=== PATIENT | female | born 1945 | race Caucasian/White ===

== ENCOUNTER 2023-11-17 20:32 | Inpatient (IN) | payer MEDICARE, SELFPAY ==
[2023-11-17] VITALS (9 sets, daily range): BP systolic 100–161; BP diastolic 55–96; BMI 25.6; BMI 28.7
[2023-11-17 14:50] LABS: % Basophils 0.4 % (0-2); % Eosinophils 1.5 % (0-6); % Immature Granulocytes 0.4 % (0-0.5); % Lymphocytes 12.1 % (20.5-51.1); % Monocytes 2.6 % (1.7-9.3); Absolute Basophils 0.1 10^3/uL (0-0.2); Absolute Eosinophils 0.2 10^3/uL (0-0.7); Absolute Immature Granulocytes 0.1 10^3/uL (0-0.05); Absolute Lymphocytes 1.6 10^3/uL (1.2-3.4); Absolute Monocytes 0.3 10^3/uL (0.1-0.6); Absolute Neutrophils 10.8 10^3/uL (1.4-6.5); Hematocrit 37.5 % (37.0-47.0); Hemoglobin 12.9 g/dL (12.0-16.0); Mean Corp Hgb Conc. 34.4 g/dL (33.0-37.0); Mean Corpuscular Volume 87.2 fL (81.0-99.0); Mean Platelet Volume 9.2 fL (7.4-10.4); Nucleated Red Blood Cells % 0 %; Platelet Count 220 10^3/uL (130-400); Red Cell Dist. Width 13.3 % (11.5-14.5)
[2023-11-17 15:06] LABS: COVID-19 Antigen Negative (Negative)
--- NOTE | 2023-11-17 15:08 | EDRN ---
still awaiting for provider to see the pt
[2023-11-17 15:09] LABS: ALT (SGPT) 13 U/L (0-35); AST (SGOT) 19 U/L (14-36); Alkaline Phosphatase 96 U/L (38-126); Blood Urea Nitrogen 16 mg/dl (7-17); Calcium 8.7 mg/dl (8.4-10.2); Carbon Dioxide 20 mmol/L (22-30); Chloride 107 mmol/L (98-107); Estimated Creatinine Clearance 55 ml/min; Glucose 179 mg/dl (70-99); Potassium 3.6 mmol/L (3.5-5.1); Sodium 138 mmol/L (135-145); Total Bilirubin 1.1 mg/dl (0.2-1.3); Total Protein 6.7 g/dl (6.3-8.2); eGFR > 60.00
--- NOTE | 2023-11-17 15:52 | EDRN ---
provider Antonia RAY currently at the pts bedside, per provider 02 4L NC was taken off and sp02 remains at 94%, will continue to monitor the pt closely
--- NOTE | 2023-11-17 15:53 | ED.GENMED ---
History of Present Illness
<Olga Dacosta PA-C - Last Filed: 11/18/23 00:09>
General
Chief Complaint: Abdominal Pain
Source: patient
Exam Limitations: none and clinical condition
Time Seen by Provider: 11/17/23 15:38
Nursing documentation reviewed up to this point in time: agreed with
History of Present Illness
History of Present Illness:
Patient is an 78-year-old female with history diabetes, hyperlipidemia presenting to the emergency department via EMS for evaluation of abdominal pain and associated nausea. Patient states that yesterday evening she became nauseous and describes
some lower abdominal discomfort. She did have 1 episode of vomiting this morning. Patient seems mildly confused and unable to ascertain exactly why she is in the emergency department today and who called 911.
Patient specifically denies any chest pain, shortness of breath, urinary symptoms, diarrhea, or constipation. Patient does however state that she has had UTIs in the past. She does report some chills over the past few days.
Past History
<Olga Dacosta PA-C - Last Filed: 11/18/23 00:09>
Past History
ED Past Medical History: Hypercholesterolemia, NIDDM, Hypothyroidism and Other (Vertigo)
ED Past Surgical History: Cholecystectomy, Gynecological, Orthopedic and Urological
Social History
Tobacco: Smoker
Alcohol: None
Drug: None
Living: with family
Review of Systems
<Olga Dacosta PA-C - Last Filed: 11/18/23 00:09>
Review of Systems
Allergies reviewed?: Yes
All Other Systems: ROS reviewed and negative except as documented in HPI and ROS
Phy Exam
<Olga Dacosta PA-C - Last Filed: 11/18/23 00:09>
Physical Exam
Physical Exam:
Vitals: Temp of 103.1F, otherwise vital signs are stable.
General: Patient is well appearing, no acute distress
Skin: Warm and dry, no rashes or lesions
Head: Normocephalic, atraumatic
Eyes: Sclera nonicteric. EOMs intact. No nystagmus.
Throat: Dry mucous membranes. Protecting airway
Neck: Normal ROM, no cervical spine tenderness, no meningismus
Cardiac: Regular rate and rhythm, no murmurs.
Pulm: Normal respiratory effort, no wheezes, rales, rhonchi heard on exam.
Abdomen: Abdomen soft. Mild abdominal tenderness in lower abdomen R>L without any rebound tenderness or guarding.
Extremities: No evidence of cyanosis or edema. Great distal pulses
Neuro: Appears confused. AAOx 2 to person and time, not place. CN II-XII intact. No focal neurologic deficits. Strength 5 out of 5 in upper and lower extremities.
Psychiatric: Normal affect.
Course
<Olga Dacosta PA-C - Last Filed: 11/18/23 00:09>
Orders/Labs/Results
Orders:
Orders
11/17/23 Breakfast
Clear Liquid
At Your Request: Full Participation
11/17/23 14:44
COVID-19 Antigen Urgent
Source: Nasal Swab
Complete Blood Count/With Diff Urgent
Comprehensive Metabolic Panel Urgent
Lactic Acid Urgent
Lipase Urgent
11/17/23 14:45
Urinalysis Reflex To Culture Urgent
Date Specimen was Collected: 11/17/23
Time Specimen was Collected: 14:43
Urine Microscopic Reflex Cult Urgent
Urine Culture Urgent
BARBARA Source: U
Specimen Description:
Date Specimen was Collected: 11/17/23
Time Specimen was Collected: 14:43
11/17/23 14:53
CXR2 [CR Chest - 2 Views ] Urgent
Comment:
Reason For Exam: cough with Sp02 of 88% on RA
11/17/23 15:55
0.9% Sodium Chloride 1000 ml [Nss] 1,000 ml IV BOLUS
Acetaminophen [Tylenol] 1,000 mg PO NOW STA
11/17/23 16:31
0.9% Sodium Chloride 1000 ml [Nss] 1,000 ml IV BOLUS
11/17/23 16:44
Blood Culture Urgent
BARBARA Source: Blood/Venous
Specimen Description:
11/17/23 17:23
Lactic Acid Urgent
11/17/23 18:53
Cefepime HCl [Maxipime] 2,000 mg IV NOW STA
11/17/23 19:34
Admit/Transfer Patient As Directed
Co-Sign Provider:
Level of Care: Inpatient admission
Assign to:: Telemetry
Physician / Group: Carlos
Diagnosis: Sepsis UTI
Reason for Telemetry: Arrhythmia
Date to Stop Telemetry: 11/20/23
Time to Stop Telemetry: 11:00
Reason for Hospitalization: IV abx
Expected length of stay greater than two midnights?: Yes
ELOS- Estimated Length of Stay in days: 3
I certify the patient meets the requirements for IP care: Yes
PRN Pain Medication Management As Directed
May give lesser potent ordered pain med per pt: Yes
preference::
Protocol:: Medication orders for pain may be administered in a
manner that supports deferring to patient preference
when the pt is:
- Requesting an ordered lesser potent pain medication.
Least to most potent pain medications are defined
as: acetaminophen < NSAID < tramadol < opioids
(morphine, oxycodone, hydromorphone).
- Requesting a lesser dose of the same medication IF
ORDERED.
- Requesting a less intrusive route of administration
if both routes are prescribed by the provider (PO <
IV).
11/17/23 19:35
CT Abd/pel Without Iv Or Oral Urgent
Comment:
Reason For Exam: Fever, Dysuria, Urinary Frequency
Code Status As Directed
Resuscitation Status: Full Code
11/17/23 21:17
0.9% Sodium Chloride 1000 ml [Nss] 1,000 ml IV 75 mls/hr
Acetaminophen [Tylenol] 650 mg PO Q4HPRN PRN
Dextrose 50%-Water [Dextrose 50% Syringe] 12.5 grams IV [id number] PRN
Glucagon [GlucaGen] 1 mg IM PRN PRN
11/17/23 21:17
Activity As Directed
Activity Level: Out of Bed-Early Mobility
With Assistance
Advance Diet as Tolerated As Directed
Goal Diet: 2200 janine/ 18 CHO Diabetic
Bedside Glucose Monitoring As Directed
Frequency: AC&HS
Additional Instructions:: Change to q6h if pt on TPN, tube feeding or not eating
I&O [Intake/ Output] As Directed
Frequency: q12h
Pneumatic Compression Sleeves As Directed
Type: Knee high
Vital Signs As Directed
Frequency: Per unit guidelines
Weight As Directed
Frequency: Daily
DX Deep Vein Thrombosis Video Routine
11/18/23 06:00
Basic Metabolic Panel IN AM
Complete Blood Count/No Diff IN AM
Glycohemoglobin (HgbA1c) IN AM
Levothyroxine [Synthroid] 150 mcg PO DAILY @ 0600
11/18/23 07:30
Insulin Aspart Corrective Low [Novolog Flexpen-Low Resistance] See Protocol SC AC
11/18/23 08:00
Atorvastatin [Lipitor] 10 mg PO DAILY
11/20/23 11:00
DC Protocol for Telemetry ONCE
Abnormal Lab Results
11/17/23 11/17/23
14:44 14:45
WBC 13.0 H 10^3/uL
(4.8-10.8)
Abs Immat Gran (auto) 0.1 H 10^3/uL
(0-0.05)
Absolute Neuts (auto) 10.8 H 10^3/uL
(1.4-6.5)
Neutrophils % 83.0 H %
(42.2-75.2)
Lymphocytes % 12.1 L %
(20.5-51.1)
Carbon Dioxide 20 L mmol/L
(22-30)
Glucose 179 H mg/dl
(70-99)
Lactic Acid 2.3 H mmol/L
(0.7-2.0)
Urine Ketones 3+ A
(Negative)
Ur Occult Blood Reflex 3+ A
(Negative)
Urine Nitrite (Reflex) Positive A
(Negative)
Urine RBC 21-25 A /HPF
(0-2)
Urine WBC (Reflex) 16-20 A /HPF
(0-5)
Urine Bacteria (Reflex) Many A
(Negative)
Urine Glucose 2+ A
(Negative)
11/17/23 14:44
11/17/23 14:44
Vital Signs
Temp: 103.1 F
Initial and Last Documented VS:
Initial Vital Signs
BP
121/56
11/17/23 14:38
Last Documented Vital Signs
Temp Pulse Resp BP Pulse Ox
97.1 F 100 20 161/96 98
11/17/23 23:21 11/17/23 23:21 11/17/23 23:21 11/17/23 23:21 11/17/23 23:21
<Randy Gomez, DO - Last Filed: 11/17/23 18:52>
Orders/Labs/Results
Orders:
Orders
11/17/23 Breakfast
Clear Liquid
At Your Request: Full Participation
11/17/23 14:44
COVID-19 Antigen Urgent
Source: Nasal Swab
Complete Blood Count/With Diff Urgent
Comprehensive Metabolic Panel Urgent
Lactic Acid Urgent
Lipase Urgent
11/17/23 14:45
Urinalysis Reflex To Culture Urgent
Date Specimen was Collected: 11/17/23
Time Specimen was Collected: 14:43
Urine Microscopic Reflex Cult Urgent
Urine Culture Urgent
BARBARA Source: U
Specimen Description:
Date Specimen was Collected: 11/17/23
Time Specimen was Collected: 14:43
11/17/23 14:53
CXR2 [CR Chest - 2 Views ] Urgent
Comment:
Reason For Exam: cough with Sp02 of 88% on RA
11/17/23 15:55
0.9% Sodium Chloride 1000 ml [Nss] 1,000 ml IV BOLUS
Acetaminophen [Tylenol] 1,000 mg PO NOW STA
11/17/23 16:31
0.9% Sodium Chloride 1000 ml [Nss] 1,000 ml IV BOLUS
11/17/23 16:44
Blood Culture Urgent
BARBARA Source: Blood/Venous
Specimen Description:
11/17/23 17:23
Lactic Acid Urgent
11/17/23 18:53
Cefepime HCl [Maxipime] 2,000 mg IV NOW STA
11/17/23 19:34
Admit/Transfer Patient As Directed
Co-Sign Provider:
Level of Care: Inpatient admission
Assign to:: Telemetry
Physician / Group: Carlos
Diagnosis: Sepsis UTI
Reason for Telemetry: Arrhythmia
Date to Stop Telemetry: 11/20/23
Time to Stop Telemetry: 11:00
Reason for Hospitalization: IV abx
Expected length of stay greater than two midnights?: Yes
ELOS- Estimated Length of Stay in days: 3
I certify the patient meets the requirements for IP care: Yes
PRN Pain Medication Management As Directed
May give lesser potent ordered pain med per pt: Yes
preference::
Protocol:: Medication orders for pain may be administered in a
manner that supports deferring to patient preference
when the pt is:
- Requesting an ordered lesser potent pain medication.
Least to most potent pain medications are defined
as: acetaminophen < NSAID < tramadol < opioids
(morphine, oxycodone, hydromorphone).
- Requesting a lesser dose of the same medication IF
ORDERED.
- Requesting a less intrusive route of administration
if both routes are prescribed by the provider (PO <
IV).
11/17/23 19:35
CT Abd/pel Without Iv Or Oral Urgent
Comment:
Reason For Exam: Fever, Dysuria, Urinary Frequency
Code Status As Directed
Resuscitation Status: Full Code
11/17/23 21:17
0.9% Sodium Chloride 1000 ml [Nss] 1,000 ml IV 75 mls/hr
Acetaminophen [Tylenol] 650 mg PO Q4HPRN PRN
Dextrose 50%-Water [Dextrose 50% Syringe] 12.5 grams IV [id number] PRN
Glucagon [GlucaGen] 1 mg IM PRN PRN
11/17/23 21:17
Activity As Directed
Activity Level: Out of Bed-Early Mobility
With Assistance
Advance Diet as Tolerated As Directed
Goal Diet: 2200 janine/ 18 CHO Diabetic
Bedside Glucose Monitoring As Directed
Frequency: AC&HS
Additional Instructions:: Change to q6h if pt on TPN, tube feeding or not eating
I&O [Intake/ Output] As Directed
Frequency: q12h
Pneumatic Compression Sleeves As Directed
Type: Knee high
Vital Signs As Directed
Frequency: Per unit guidelines
Weight As Directed
Frequency: Daily
DX Deep Vein Thrombosis Video Routine
11/18/23 06:00
Basic Metabolic Panel IN AM
Complete Blood Count/No Diff IN AM
Glycohemoglobin (HgbA1c) IN AM
Levothyroxine [Synthroid] 150 mcg PO DAILY @ 0600
11/18/23 07:30
Insulin Aspart Corrective Low [Novolog Flexpen-Low Resistance] See Protocol SC AC
11/18/23 08:00
Atorvastatin [Lipitor] 10 mg PO DAILY
11/20/23 11:00
DC Protocol for Telemetry ONCE
Abnormal Lab Results
11/17/23 11/17/23
14:44 14:45
WBC 13.0 H 10^3/uL
(4.8-10.8)
Abs Immat Gran (auto) 0.1 H 10^3/uL
(0-0.05)
Absolute Neuts (auto) 10.8 H 10^3/uL
(1.4-6.5)
Neutrophils % 83.0 H %
(42.2-75.2)
Lymphocytes % 12.1 L %
(20.5-51.1)
Carbon Dioxide 20 L mmol/L
(22-30)
Glucose 179 H mg/dl
(70-99)
Lactic Acid 2.3 H mmol/L
(0.7-2.0)
Urine Ketones 3+ A
(Negative)
Ur Occult Blood Reflex 3+ A
(Negative)
Urine Nitrite (Reflex) Positive A
(Negative)
Urine RBC 21-25 A /HPF
(0-2)
Urine WBC (Reflex) 16-20 A /HPF
(0-5)
Urine Bacteria (Reflex) Many A
(Negative)
Urine Glucose 2+ A
(Negative)
11/17/23 14:44
11/17/23 14:44
Vital Signs
Initial and Last Documented VS:
Initial Vital Signs
BP
121/56
11/17/23 14:38
Last Documented Vital Signs
Temp Pulse Resp BP Pulse Ox
97.1 F 100 20 161/96 98
11/17/23 23:21 11/17/23 23:21 11/17/23 23:21 11/17/23 23:21 11/17/23 23:21
<Olga Dacosta PA-C - Last Filed: 11/18/23 00:09>
MDM/Problems Addressed
Differential Diagnosis Includes:
Not limited to sepsis, septic shock, UTI, pyelonephritis, appendicitis, colitis,
MDM/Problems Addressed:
78-year-old female presenting with mild sepsis secondary to UTI. Presents via EMS history of nausea, lower abdominal pain, and 1 episode of vomiting. Appears confused on my initial evaluation. Patient is febrile to 103.1 F. Otherwise patient is
hemodynamically stable. Physical exam as above. Patient somewhat confused, alert and oriented x 2. No focal neurologic deficits noted. Heart regular rate and rhythm. Lungs clear bilaterally. Patient is oxygenating well on room air. Abdomen is
soft with mild diffuse lower abdominal tenderness. No focal tenderness noted. Patient is perfusing well. Labs were initiated which show a leukocytosis of 13 with left shift. No clinically significant abnormalities on chemistry panel. Lactic
acidosis of 2.3. Patient was repleted with 2 L normal saline. Urine was obtained which is positive for signs of infection. Chest x-ray obtained without any acute disease. Both urine culture and blood culture will be sent.
Patient has remained hemodynamically stable in emergency department. Blood pressure stable. Temperature has normalized following 1 g of Tylenol. She has received 2 L of normal saline. At this point�patient appears mildly septic likely due to
UTI. Will start patient on cefepime and admit to hospitalist for further management. Patient accepted to hospitalist service
Chronic conditions affecting care:
N/A
Acute Exacerbation and/or Progression of Chronic Illness:
N/A
<Olga Dacosta PA-C - Last Filed: 11/18/23 00:09>
*Radiology
Radiology exam reviewed: preliminary read by ED provider (No acute disease of chest)
*Pulse Oximetry
Patient hypoxic: no
*EKG
Interpreted by ED Provider?: NA
*Tip Fixer Interpretation
Rate: normal
Interpretation: normal
Heart Rate: 83
Rhythm: sinus
*Critical Care Note
Total Time (30-74mins, 75-104mins- exclusive of procedures): Not Applicable
<Olga Dacosta PA-C - Last Filed: 11/18/23 00:09>
Patient Management
Discussion with other providers: Hospitalist
Escalation/DeEscalation of care consider admission/obs:
Admit for IV antibiotics, further management
ED Attending Note
<Olga Dacosta PA-C - Last Filed: 11/18/23 00:09>
-
Portions of this chart may have been created with voice recognition software.� Occasional wrong word or��sound alike� substitutions may have occurred due to the inherent limitations of voice recognition software.
<Randy Gomez, - Last Filed: 11/17/23 18:52>
ED Attending Note
Patient seen and examined by attending physician: Yes
I performed a history and physical exam of patient and discussed management with resident, I reviewed resident's note and agree with documented findings and plan of care.: Yes
ED Attending Note:
I have reviewed and agree with patient treatment plan by Olga Funk. My exam revealed
Physical Exam
General: Appears uncomfortable, fever 103.1
Neck: supple. no meningeal signs. normal posterior pharynx
Heart: s1/s2 regular rate and rhythm, no murmur. equal radial
pulses.
HEENT: Pupils equal round reactive to light, EOMI
Lungs: no acute respiratory distress. clear bilaterally, intermittent cough
Abdomen: normal bowel sounds. not tender. no CVAT
Neuro: alert and oriented. no focal neurological deficits cranial nerves II through XII intact
Skin: no rash
Psychiatric: well kept. interactive and cooperative
Extremities: no edema. no calf tenderness. negative homans. good distal pulses
Patient with fever and UTI, mild sepsis. IV cefepime ordered. Admit to hospitalist.
Discharge Plan
Departure
Patient Disposition: Admit
Date of Disposition: 11/17/23
Time of Disposition: 18:52
Presentation/result/management discussed w/ accepting MD/DO: Hospitalist
Covid-19: Negative COVID-19
Discharge Problem:
Acute UTI, Sepsis
Interventions
Interventions:
*Risk Screen - Suicide Last Done: 11/17/23 21:39
*General Assessment Last Done: 11/17/23 14:49
*Neglect/Abuse Screening Last Done: 11/17/23 14:49
ED- Fall Risk Assessment Last Done: 11/17/23 14:49
*ED COVID-19 Vaccine History Last Done: 11/17/23 21:39
*Nursing Disposition Last Done: 11/17/23 21:18
GI-Vidjwb-Fweypukmbj Assessment Last Done: 11/17/23 14:49
Discharge Date and Time
Discharge Date/Time: 11/17/23 21:19
[2023-11-17 15:59] LABS: Lactic Acid 2.3 mmol/L (0.7-2.0)
[2023-11-17 16:15] LABS: Lipase 67 U/L (23-300)
[2023-11-17] MEDS: TYLENOL 1000 MG PO (16:17)
[2023-11-17] MEDS: NSS 1000 IV ×3 (16:17→21:38)
[2023-11-17 17:33] LABS: Urine Albumin Trace (Neg - Trace); Urine Bilirubin Negative (Negative); Urine Character Clear (Clear); Urine Color Yellow; Urine Glucose 2+ (Negative); Urine Ketone 3+ (Negative); Urine Leukocyte Negative (Negative); Urine Nitrite Positive (Negative); Urine Occult Blood 3+ (Negative); Urine Urobilinogen 1+ (Neg - 1+)
[2023-11-17 18:15] LABS: Lactic Acid 0.8 mmol/L (0.7-2.0)
[2023-11-17 19:11] LABS: Urine Bacteria Many (Negative); Urine Red Blood Cell 21-25 /HPF (0-2); Urine White Cell 16-20 /HPF (0-5)
[2023-11-17] MEDS: MAXIPIME 2000 MG IV (19:28)
--- NOTE | 2023-11-17 19:39 | W.PN.UPDATE ---
Update Note
Progress Note Update
This is an addendum to the H&P written by Karina Reyes on 11/17/2023.� Patient seen and examined independently with PA.
78-year-old female with past medical history of diabetes, hypercholesteremia, hypothyroidism, presenting with chills, right groin�pain, nausea, and dysuria.�
Patient febrile with temperature 102.5.
Chest x-ray unremarkable.� COVID-negative.� Urinalysis shows 16-20 WBC, positive nitrates.
Sepsis secondary to UTI/pyelonephritis.� Blood culture, urine culture pending.� IV fluids. Check CT abdomen pelvis. Cefepime.�
--- NOTE | 2023-11-17 19:40 | HPS.HSE ---
Family Physician
-
Family Physician: NOT KNOW UNKNOWN - PT DOES
Chief Complaint
-
Chills
History of Present Illness
Patient is a 78 yo F with PMH DM, hypothyroid, and HLD c/o chills x 1 day. Pt reports chills, subjective fever, nausea, and a small episode of vomiting since last night. She denies use of OTC medications. Pt also reports dysuria, urinary frequency,
urgency, and lower abdominal/suprapubic pressure beginning a week ago. Pt denies flank pain and recent illness/antibiotic use. She denies prior history of nephrolithiasis.
Medical History
Past Medical History
Past Medical History: Reports Other
Additional Past Medical History:
Diabetes Mellitus, Type II
Hyperlipidemia
Post-Surgical Hypothyroidism
Past Surgical History: Reports Other
Additional Past Surgical History:
Right Shoulder Hemiarthroplasty
Tonsillectomy
Thyroidectomy
Cholecystectomy
Vein Stripping
Back Surgery x 3
Social History
Tobacco: Smoker (About 6 cigarettes per day)
Family History
Family History: Not pertinent
Allergies / Home Medications
Allergies reflects when Allergies were last updated in [facility].
Home Medications with original date entered in [facility]
Allergy/Medication List:
Allergies
Allergy/AdvReac Type Severity Reaction Status Date / Time
adhesive tape Allergy Rash Verified 04/01/22 17:01
latex Allergy Rash Verified 04/01/22 17:01
Home Medications
atorvastatin 10 mg tablet 10 mg PO DAILY 11/19/12
levothyroxine 150 mcg tablet 150 mcg PO DAILY 07/06/18
acetaminophen 500 mg tablet (Tylenol Extra Strength) 1,000 mg PO Q6HPRN PRN mild pain 11/17/23
glimepiride 4 mg tablet 4 mg PO DAILY 11/17/23
repaglinide 0.5 mg tablet 0.5 mg PO TID 11/17/23
Review of Systems
-
A 12 point ROS was completed and negative except as noted: Yes
Constitutional: Reports Fever and Chills
Respiratory: Denies Cough or Trouble Breathing
Cardiac: Denies Chest Pain or Palpitations
: Reports Dysuria and Frequency; Denies Flank Pain or Bleeding
Physical Exam
Vital Signs
Vital Signs
Temp Pulse Resp BP Pulse Ox
98.9 F 75 21 130/82 91
11/17/23 18:27 11/17/23 18:30 11/17/23 18:30 11/17/23 18:27 11/17/23 18:30
Physical Exam
General: Comfortable and Conversant
HEENT: Anicteric and Moist mucous membranes
Respiratory: Clear and Non Labored Respirations
Cardiac: S1/S2 and Regular Rhythm
GI: Soft and Non Tender
Genito-urinary: No Costovertebral angle tend
Musculoskeletal: No Clubbing, No Cyanosis and No Edema
Skin: Warm and Dry
Neuro: Awake, Alert, Oriented and Nonfocal/grossly intact
Psych: Calm
Laboratory Results
-
11/17/23 14:44
11/17/23 14:44
Laboratory Results
Lactic Acid 0.8 mmol/L (0.7-2.0) 11/17/23 17:23
Total Bilirubin 1.1 mg/dl (0.2-1.3) 11/17/23 14:44
AST 19 U/L (14-36) 11/17/23 14:44
ALT 13 U/L (0-35) 11/17/23 14:44
Alkaline Phosphatase 96 U/L (38-126) 11/17/23 14:44
Lipase 67 U/L (23-300) 11/17/23 14:44
Data Reviewed
-
Lab Data: Labs Reviewed by me
Impression/Plan
-
Sepsis, secondary Urinary Tract Infection
-Continue Cefepime
-Await blood and urine culture
-Check Abd/Pelvis CT to evaluate for possible pyelonephritis or nephrolithiasis
Diabetes Mellitus, Type II
-Hold oral meds
-Monitor sugars and continue coverage insulin
Hyperlipidemia
-Continue atorvastatin
Post-Surgical Hypothyroidism
-Continue levothyroxine
DVT proph: Lovenox
Code Status: Full Code
[2023-11-17 21:39] LABS: Glucose - Point of Care 218 mg/dl (70-99)
[2023-11-18] MEDS: TYLENOL 650 MG PO ×3 (00:18→16:35)
[2023-11-18] MEDS: COMPAZINE 5 MG IV (00:19)
--- NOTE | 2023-11-18 02:14 | PTCARENOTE ---
Pt admitted to the unit from ED. Pt ambulated with nursing staff to bed. AAXO3. VS: Temp 98.5, Pulse 64, BP 100/58, Resp Rate 18, O2 98 on RA. IV fluids infusion started. See MAR. Pt denied N/V. Pt reports 'discomfort, like my bladder is full but it
isn't' across lower abdomen. Pt reports pain is acceptable level of 4/10. Pt oriented to room with call almazan in reach. Plan of care ongoing.
~23:44 Pt vomited 50 mL of green liquid. AAXO2. Pt reoriented to place. Notified FRANK Carreno. New order placed. Plan of care ongoing.
~00:17 Temp 103.0. Tylenol administered. Cold wash cloth and ice packs apply. Plan of care ongoing.
~01:30 Recheck Temp 101.9. Plan of care ongoing.
[2023-11-18 03:14] VITALS: BP 98/57
[2023-11-18] MEDS: SYNTHROID 150 MCG PO (05:07)
[2023-11-18 06:00] VITALS: BMI 28.7
--- NOTE | 2023-11-18 07:34 | W.PN.HOSP.TC ---
Today's Communication/Plan
-
IVF. IV antibiotics. Follow-up cultures
Assessment / Plan
Assessment / Plan
Physical exam:
General: Well Developed, Well Nourished and No Apparent Distress
HEENT: Normocephalic, Atraumatic and Moist Mucous Membranes
Respiratory: Clear to Auscultation; Negative Wheezes, Rales or Rhonchi
Cardiac: Regular Rhythm and S1/S2
GI: Soft, Nontender and Nondistended
Musculoskeletal: No Clubbing, No Cyanosis and No Edema
Neuro: Awake, Alert and Oriented
Psych: Calm
A/P:
Sepsis, secondary Urinary Tract Infection:
-Patient has a mixed picture in terms of progress and while she has some improvement, she remains critically ill, therefore needs close monitoring and low threshold to transfer to ICU if worsening.
-Continue IV cefepime 2 g every 12 hours (can change to 1 g every 12 hours) and will tailor depending on cultures.
-Await blood and urine culture--> urine culture growing E. coli but pending sensitivities. Blood cultures pending.
-Will give a dose of IV ertapenem 1 g x 1 while waiting for sensitivities in case of any resistance.
-Checked Abd/Pelvis CT and no evidence of obstructive uropathy
-Normal saline 1 L bolus x 1 this morning
-Continue with maintenance IV fluids
-WBC 13--> 11.3
-Lactate 0.8 upon admission
-Continue to monitor temperature curve and trend WBC
-Follow-up cultures
-Updated daughter over the phone today, Monet
Hypokalemia:
Replete and trend
Check magnesium in a.m.
Diabetes Mellitus, Type II:
-Hold oral meds
-Hemoglobin A1c 9.2
-Blood sugar 130 this morning but she has not been eating much.
-Insulin sliding scale
-Continue to monitor sugars and adjust medications accordingly
Hyperlipidemia
-Continue atorvastatin, 10 mg p.o. daily
Post-Surgical Hypothyroidism
-Continue levothyroxine, 150 mcg daily
-Update TSH in a.m.
DVT proph: Lovenox
Code Status: Full Code
Total time spent on today's encounter was 52 minutes which included time spent in counseling the patient/family regarding diagnosis and treatment plan as listed above, goals of care, and symptom management. Case was discussed with nursing staff,
specialists, and care coordinators/case management. All labs and imaging personally reviewed by me. Remainder the time spent in detailed review of previous records, lab data, imaging, and other medical provider documentation.
Anticipated Discharge: > 48 hours
Subjective/Interval History
-
Date of Service: November 18, 2023
Patient feels warm and does not feel back to her baseline yet. She still having fevers although it is coming down. She does report dysuria. Denies abdominal pain. She has nausea on and off. Blood pressure on the low side this morning. No
vomiting.
Objective Data
-
Labs:
Laboratory Results
11/18/23
06:41
WBC Pending
Hgb Pending
Hct Pending
Plt Count Pending
Sodium Pending
Potassium Pending
Chloride Pending
Carbon Dioxide Pending
BUN Pending
Creatinine Pending
Glucose Pending
Calcium Pending
Vital Signs:
Vital Signs
Temp Pulse Resp BP Pulse Ox
99.9 F 73 16 98/57 96
11/18/23 03:14 11/18/23 03:14 11/18/23 03:14 11/18/23 03:14 11/18/23 03:14
I&O
11/17/23 11/18/23 11/19/23
06:59 06:59 06:59
Intake Total 758 / 758
Output Total 100 / 100
Balance 658 / 658
[2023-11-18 07:44] VITALS: BP 97/76
[2023-11-18 07:45] LABS: Hematocrit 36.5 % (37.0-47.0); Hemoglobin 12.1 g/dL (12.0-16.0); Mean Corp Hgb Conc. 33.2 g/dL (33.0-37.0); Mean Corpuscular Hgb 29.6 pg (27.0-31.0); Mean Corpuscular Volume 89.2 fL (81.0-99.0); Mean Platelet Volume 9.4 fL (7.4-10.4); Platelet Count 182 10^3/uL (130-400); Red Blood Cell Count 4.09 10^6/uL (4.20-5.40); Red Cell Dist. Width 13.6 % (11.5-14.5); White Blood Cell Count 11.3 10^3/uL (4.8-10.8)
[2023-11-18 08:00] LABS: Glucose - Point of Care 181 mg/dl (70-99)
[2023-11-18 08:30] LABS: Glycohemoglobin (HgbA1c) 9.2 % (4.0-5.6)
[2023-11-18 08:34] LABS: Blood Urea Nitrogen 14 mg/dl (7-17); Calcium 7.7 mg/dl (8.4-10.2); Carbon Dioxide 21 mmol/L (22-30); Chloride 107 mmol/L (98-107); Estimated Creatinine Clearance 54 ml/min; Glucose 130 mg/dl (70-99); Potassium 3.4 mmol/L (3.5-5.1); Sodium 138 mmol/L (135-145); eGFR > 60.00
[2023-11-18] MEDS: NSS 1000 IV ×2 (09:01→11:48)
[2023-11-18] MEDS: LIPITOR 10 MG PO (09:03)
[2023-11-18] MEDS: NOVOLOG FLEXPEN-LOW RESISTANCE 1 UNITS SC (09:03)
[2023-11-18] MEDS: MAXIPIME 2000 MG IV (09:04)
[2023-11-18] MEDS: STERILE WATER FOR INJECTION 10 ML IV ×2 (09:04→19:42)
[2023-11-18 11:25] VITALS: BP 102/49
[2023-11-18 11:29] LABS: Glucose - Point of Care 205 mg/dl (70-99)
[2023-11-18] MEDS: NOVOLOG FLEXPEN-LOW RESISTANCE 2 UNITS SC (11:46)
[2023-11-18 15:33] VITALS: BP 110/50
[2023-11-18] MEDS: KCL 40 MEQ PO (16:03)
[2023-11-18] MEDS: INVANZ 60 MG IV (16:04)
[2023-11-18 16:40] LABS: Glucose - Point of Care 125 mg/dl (70-99)
--- NOTE | 2023-11-18 16:40 | CM ---
IA completed at bedside with daughter Monet.
DX: Sepsis, UTI
Patient lives at home in a bi-level with her , son & dog.
3 steps to enter & 12 steps to main floor.
PLOF: Independent, driving, was working at [employer].
Recently suspended due to an elopement of a resident.
Daughter expressed concerns of patients finances, unkept home.
Resources given food/utility from [employer]
Will notify [facility].
pcp: Cezar Chaparro
pharmacy: April Mendoza
Plan: Discharge when stable. [facility]. Await PT/OT evals
[2023-11-18] MEDS: NOVOLOG FLEXPEN-LOW RESISTANCE SC (18:13)
[2023-11-18] MEDS: LOVENOX 40 MG SC (18:14)
[2023-11-18 19:33] VITALS: BP 121/62
[2023-11-18] MEDS: MAXIPIME 1000 MG IV (19:42)
[2023-11-18 21:36] LABS: Glucose - Point of Care 206 mg/dl (70-99)
[2023-11-18 23:18] VITALS: BP 125/53
[2023-11-19] VITALS (8 sets, daily range): BP systolic 112–140; BP diastolic 48–68; PULSE 56; O2SAT 94; BMI 29.3
[2023-11-19] MEDS: NSS 1000 IV ×2 (01:07→12:49)
[2023-11-19] MEDS: SYNTHROID 150 MCG PO (05:50)
[2023-11-19] MEDS: TYLENOL 650 MG PO (06:06)
[2023-11-19 08:00] LABS: Glucose - Point of Care 120 mg/dl (70-99)
[2023-11-19] MEDS: MAXIPIME 1000 MG IV (08:01)
[2023-11-19] MEDS: STERILE WATER FOR INJECTION 10 ML IV ×2 (08:02→19:33)
[2023-11-19] MEDS: LIPITOR 10 MG PO (08:02)
[2023-11-19] MEDS: NOVOLOG FLEXPEN-LOW RESISTANCE SC (08:03)
[2023-11-19 10:27] LABS: Hematocrit 33.4 % (37.0-47.0); Hemoglobin 11.6 g/dL (12.0-16.0); Mean Corp Hgb Conc. 34.7 g/dL (33.0-37.0); Mean Corpuscular Volume 89.3 fL (81.0-99.0); Mean Platelet Volume 9.4 fL (7.4-10.4); Platelet Count 141 10^3/uL (130-400); Red Blood Cell Count 3.74 10^6/uL (4.20-5.40); Red Cell Dist. Width 13.5 % (11.5-14.5); White Blood Cell Count 9.2 10^3/uL (4.8-10.8)
[2023-11-19 10:52] LABS: % Basophils 0.4 % (0-2); % Eosinophils 0.8 % (0-6); % Immature Granulocytes 0.5 % (0-0.5); % Lymphocytes 15.8 % (20.5-51.1); % Monocytes 7.3 % (1.7-9.3); % Neutrophils 75.2 % (42.2-75.2); Absolute Eosinophils 0.1 10^3/uL (0-0.7); Absolute Immature Granulocytes 0.1 10^3/uL (0-0.05); Absolute Lymphocytes 1.5 10^3/uL (1.2-3.4); Absolute Monocytes 0.7 10^3/uL (0.1-0.6); Absolute Neutrophils 6.9 10^3/uL (1.4-6.5); Nucleated Red Blood Cells % 0.2 %
[2023-11-19 11:07] LABS: Blood Urea Nitrogen 12 mg/dl (7-17); Calcium 7.3 mg/dl (8.4-10.2); Carbon Dioxide 24 mmol/L (22-30); Chloride 109 mmol/L (98-107); Estimated Creatinine Clearance 54 ml/min; Glucose 150 mg/dl (70-99); Magnesium 1.9 mg/dl (1.6-2.3); Potassium 3.3 mmol/L (3.5-5.1); Sodium 138 mmol/L (135-145); eGFR > 60.00
[2023-11-19 11:32] LABS: TSH 2.32 uIU/ml (0.47-4.68)
[2023-11-19 11:56] LABS: Glucose - Point of Care 154 mg/dl (70-99)
--- NOTE | 2023-11-19 12:47 | PTCARENOTE ---
Preliminary Blood Cultures are positive for Gram Negative Bacilli- hospitalist notified.
[2023-11-19] MEDS: NOVOLOG FLEXPEN-LOW RESISTANCE 1 UNITS SC ×2 (12:48→17:34)
--- NOTE | 2023-11-19 13:02 | CM ---
[facility] & spoke with Kirstin [phone] regarding concerns.
Daughter Monet expressed concerns with patient's financial & housing situation.
Plan: Discharge when stable.
PT recommending home health
--- NOTE | 2023-11-19 14:01 | W.PN.HOSP.TC ---
Today's Communication/Plan
-
Monitor vital signs
See plan
Check new sets of blood culture
Change cefepime to ceftriaxone
Restart glimepiride
Replete potassium
Assessment / Plan
Assessment / Plan
Physical exam:
General: Well Developed, Well Nourished and No Apparent Distress
HEENT: Normocephalic, Atraumatic and Moist Mucous Membranes
Respiratory: Clear to Auscultation; Negative Wheezes, Rales or Rhonchi
Cardiac: Regular Rhythm and S1/S2
GI: Soft, Nontender and Nondistended
Musculoskeletal: No Clubbing, No Cyanosis and No Edema
Neuro: Awake, Alert and Oriented
Psych: Calm
A/P:
Sepsis, secondary Urinary Tract Infection:
Change cefepime to ceftriaxone
Urine culture with E. coli, blood culture growing gram-negative rods. Repeat culture
Status post 1 dose of ertapenem
-Checked Abd/Pelvis CT and no evidence of obstructive uropathy
-Lactate 0.8 upon admission
-Continue to monitor temperature curve and trend WBC
Hypokalemia
Replete
Diabetes Mellitus, Type II:
-Hold Prandin, restart glimepiride
-Hemoglobin A1c 9.2
-Insulin sliding scale
-Continue to monitor sugars and adjust medications accordingly
Hyperlipidemia
-Continue atorvastatin
Post-Surgical Hypothyroidism
-Continue levothyroxine
DVT proph: Lovenox
Code Status: Full Code
Total time spent on today's encounter was 52 minutes which included time spent in counseling the patient/family regarding diagnosis and treatment plan as listed above, goals of care, and symptom management. Case was discussed with nursing staff,
specialists, and care coordinators/case management. All labs and imaging personally reviewed by me. Remainder the time spent in detailed review of previous records, lab data, imaging, and other medical provider documentation.
Anticipated Discharge: 24 - 48 hours
Subjective/Interval History
-
Date of Service: November 19, 2023
denies pain
Objective Data
-
Labs:
Laboratory Results
11/19/23
09:56
WBC 9.2
Hgb 11.6 L
Hct 33.4 L
Plt Count 141 D
Sodium 138
Potassium 3.3 L
Chloride 109 H
Carbon Dioxide 24
BUN 12
Creatinine 0.8
Glucose 150 H
Calcium 7.3 L
Vital Signs:
Vital Signs
Temp Pulse Resp BP Pulse Ox
98.2 F 59 18 112/54 95
11/19/23 11:48 11/19/23 11:48 11/19/23 11:48 11/19/23 11:48 11/19/23 11:48
I&O
11/18/23 11/19/23 11/20/23
06:59 06:59 06:59
Intake Total 758 / 758 2610 / 2610
Output Total 100 / 100 1800 / 1800
Balance 658 / 658 810 / 810
[2023-11-19] MEDS: KCL 20 MEQ PO (16:02)
[2023-11-19 17:12] LABS: Glucose - Point of Care 176 mg/dl (70-99)
[2023-11-19] MEDS: LOVENOX 40 MG SC (17:35)
[2023-11-19] MEDS: ROCEPHIN 1000 MG IV (19:34)
[2023-11-19 21:15] LABS: Glucose - Point of Care 218 mg/dl (70-99)
[2023-11-20 03:09] VITALS: BP 128/76
[2023-11-20] MEDS: SYNTHROID 150 MCG PO (03:46)
[2023-11-20] MEDS: TYLENOL 650 MG PO (03:52)
[2023-11-20 05:56] VITALS: BMI 29.7
[2023-11-20 07:14] LABS: Glucose - Point of Care 199 mg/dl (70-99)
[2023-11-20 07:15] VITALS: BP 130/63
[2023-11-20] MEDS: NOVOLOG FLEXPEN-LOW RESISTANCE 1 UNITS SC ×2 (08:02→17:21)
[2023-11-20] MEDS: AMARYL 4 MG PO (08:02)
[2023-11-20] MEDS: LIPITOR 10 MG PO (08:02)
[2023-11-20 09:40] LABS: % Basophils 0.5 % (0-2); % Eosinophils 3.8 % (0-6); % Immature Granulocytes 0.5 % (0-0.5); % Lymphocytes 21.6 % (20.5-51.1); % Monocytes 10.5 % (1.7-9.3); % Neutrophils 63.1 % (42.2-75.2); Absolute Eosinophils 0.3 10^3/uL (0-0.7); Absolute Lymphocytes 1.8 10^3/uL (1.2-3.4); Absolute Monocytes 0.9 10^3/uL (0.1-0.6); Absolute Neutrophils 5.2 10^3/uL (1.4-6.5); Hematocrit 31.8 % (37.0-47.0); Hemoglobin 10.8 g/dL (12.0-16.0); Mean Corpuscular Hgb 29.8 pg (27.0-31.0); Mean Corpuscular Volume 87.8 fL (81.0-99.0); Mean Platelet Volume 9.9 fL (7.4-10.4); Nucleated Red Blood Cells % 0 %; Platelet Count 160 10^3/uL (130-400); Red Blood Cell Count 3.62 10^6/uL (4.20-5.40); Red Cell Dist. Width 13.3 % (11.5-14.5); White Blood Cell Count 8.2 10^3/uL (4.8-10.8)
[2023-11-20 11:00] LABS: Blood Urea Nitrogen 9 mg/dl (7-17); Calcium 7.5 mg/dl (8.4-10.2); Carbon Dioxide 24 mmol/L (22-30); Chloride 107 mmol/L (98-107); Estimated Creatinine Clearance 73 ml/min; Glucose 217 mg/dl (70-99); Potassium 3.5 mmol/L (3.5-5.1); Sodium 137 mmol/L (135-145); eGFR > 60.00
[2023-11-20 11:53] LABS: Glucose - Point of Care 114 mg/dl (70-99)
[2023-11-20] MEDS: NOVOLOG FLEXPEN-LOW RESISTANCE SC (11:58)
[2023-11-20 11:59] VITALS: BP 110/67
--- NOTE | 2023-11-20 13:08 | PN.CDI ---
CDI
- -
CDI:
Physician Documentation Request
Admit Date: 11/17/23 20:32
Dear Doctor Roldan,
Patient admitted with sepsis secondary to urinary tract infection.
11/16 lactic acid 2.3 followed by 0.8
Please clarify which of the following most accurately describes the status of the patient's infection:
Sepsis
Severe Sepsis
Other
Use of terms such as suspected, likely, concern for, or probable (associated with a specific diagnosis that is being evaluated, monitored, or treated as if it exists) are acceptable and can be coded in the inpatient setting, when documented at the
time of discharge.
Thank you,
Trisha Hector RN, BSN
CDI Specialist
tiger text
Please use your independent medical judgment in providing your response.
--- NOTE | 2023-11-20 13:14 | PN.CDI ---
CDI
- -
CDI:
Physician Documentation Request
Admit Date: 11/17/23 20:32
Dear Doctor Roldan,
Patient admitted with sepsis and UTI. ED record states she presented for evaluation of abdominal pain and associated nausea. 'patient seems mildly confused and unable to ascertain exactly why she is in the emergency department today......AAOx 2 to
person and time, not place'
11/18 assessment in hospitalist progress note states ' Awake, Alert and Oriented'
Could you please clarify in the Progress Notes which is the most likely etiology of the confusion/altered mental status.
Encephalopathy - indicate type, such as metabolic, toxic, septic, alcoholic, anoxic, hypertensive etc. due to a specific condition such as UTI, CVA, hyponatremia etc.
Acute Delirium - indicate known or suspected etiology such as postoperative, due to opioids or other drugs etc. Can also indicate unknown or mixed etiologies.
Acute or subacute confusional state due to ____ (specify known or suspected etiology)
Other
Use of terms such as suspected, likely, concern for, or probable (associated with a specific diagnosis that is being evaluated, monitored, or treated as if it exists) are acceptable and can be coded in the inpatient setting, when documented at the
time of discharge.
Thank you,
Trisha Hector RN, BSN
CDI Specialist
tiger text
Please use your independent medical judgment in providing your response.
--- NOTE | 2023-11-20 13:20 | W.PN.HOSP.TC ---
Today's Communication/Plan
-
Monitor vital signs
see plan
Continue with antibiotics
Continue follow cultures
Assessment / Plan
Assessment / Plan
Physical exam:
General: Well Developed, Well Nourished and No Apparent Distress
HEENT: Normocephalic, Atraumatic and Moist Mucous Membranes
Respiratory: Clear to Auscultation; Negative Wheezes, Rales or Rhonchi
Cardiac: Regular Rhythm and S1/S2
GI: Soft, Nontender and Nondistended
Musculoskeletal: No Clubbing, No Cyanosis and No Edema
Neuro: Awake, Alert and Oriented
Psych: Calm
A/P:
Sepsis, secondary Urinary Tract Infection:
Changed cefepime to ceftriaxone
Urine culture with E. coli, blood culture growing gram-negative rods. Repeat culture 11/18 pending
Status post 1 dose of ertapenem
-Checked Abd/Pelvis CT and no evidence of obstructive uropathy
-Lactate 0.8 upon admission
-Continue to monitor temperature curve and trend WBC
Hypokalemia
improving; monitor
Diabetes Mellitus, Type II:
-Hold Prandin, restart glimepiride
-Hemoglobin A1c 9.2
-Insulin sliding scale
-Continue to monitor sugars and adjust medications accordingly
Hyperlipidemia
-Continue atorvastatin
Post-Surgical Hypothyroidism
-Continue levothyroxine
DVT proph: Lovenox
Code Status: Full Code
Anticipated Discharge: 24 - 48 hours
Subjective/Interval History
-
Date of Service: November 20, 2023
denies pain
Objective Data
-
Labs:
Laboratory Results
11/20/23
09:11
WBC 8.2
Hgb 10.8 L
Hct 31.8 L
Plt Count 160
Sodium 137
Potassium 3.5
Chloride 107
Carbon Dioxide 24
BUN 9
Creatinine 0.6
Glucose 217 H
Calcium 7.5 L
Vital Signs:
Vital Signs
Temp Pulse Resp BP Pulse Ox
98.5 F 53 20 110/67 95
11/20/23 11:59 11/20/23 11:59 11/20/23 11:59 11/20/23 11:59 11/20/23 11:59
I&O
11/19/23 11/20/23 11/21/23
06:59 06:59 06:59
Intake Total 2610 / 2610 720 / 720
Output Total 1800 / 1800
Balance 810 / 810 720 / 720
--- NOTE | 2023-11-20 15:00 | CM ---
Patient seen at bedside.
PT/OT recommended home health.
Patient declined.
PLAN: Discharge to home when stable.
[2023-11-20 15:35] VITALS: BP 140/61; PULSE 78; O2SAT 94
[2023-11-20 17:21] LABS: Glucose - Point of Care 174 mg/dl (70-99)
[2023-11-20] MEDS: LOVENOX 40 MG SC (17:21)
[2023-11-20 19:00] VITALS: BP 128/62
[2023-11-20] MEDS: ROCEPHIN 1000 MG IV (20:03)
[2023-11-20] MEDS: STERILE WATER FOR INJECTION 10 ML IV (20:03)
[2023-11-20 21:11] LABS: Glucose - Point of Care 188 mg/dl (70-99)
[2023-11-20 23:00] VITALS: BP 111/44
[2023-11-21] VITALS (7 sets, daily range): BP systolic 130–141; BP diastolic 53–66; PULSE 60; BMI 29.6
[2023-11-21] MEDS: SYNTHROID 150 MCG PO (05:56)
[2023-11-21 07:29] LABS: Glucose - Point of Care 126 mg/dl (70-99)
[2023-11-21] MEDS: NOVOLOG FLEXPEN-LOW RESISTANCE SC ×2 (07:31→17:17)
[2023-11-21] MEDS: LIPITOR 10 MG PO (08:01)
[2023-11-21] MEDS: AMARYL 4 MG PO (08:02)
[2023-11-21 10:04] LABS: % Basophils 0.4 % (0-2); % Eosinophils 4.8 % (0-6); % Immature Granulocytes 0.3 % (0-0.5); % Lymphocytes 27.8 % (20.5-51.1); % Monocytes 10.6 % (1.7-9.3); % Neutrophils 56.1 % (42.2-75.2); Absolute Eosinophils 0.4 10^3/uL (0-0.7); Absolute Lymphocytes 2.2 10^3/uL (1.2-3.4); Absolute Monocytes 0.9 10^3/uL (0.1-0.6); Absolute Neutrophils 4.5 10^3/uL (1.4-6.5); Hematocrit 33.2 % (37.0-47.0); Hemoglobin 11.5 g/dL (12.0-16.0); Mean Corp Hgb Conc. 34.6 g/dL (33.0-37.0); Mean Corpuscular Hgb 30.8 pg (27.0-31.0); Mean Platelet Volume 9.7 fL (7.4-10.4); Nucleated Red Blood Cells % 0 %; Platelet Count 169 10^3/uL (130-400); Red Blood Cell Count 3.73 10^6/uL (4.20-5.40); Red Cell Dist. Width 13.3 % (11.5-14.5)
--- NOTE | 2023-11-21 11:30 | W.PN.HOSP.TC ---
Addendum entered and electronically signed by Devyn Montilla MD 11/21/23 16:27:
Severe sepsis secondary to urinary tract infection
Original Note:
Today's Communication/Plan
-
Monitor vital signs
See plan
Awaiting blood culture speciation
Continue antibiotics
restart prandin
Hopeful DC tomorrow
Assessment / Plan
Assessment / Plan
Physical exam:
General: Well Developed, Well Nourished and No Apparent Distress
HEENT: Normocephalic, Atraumatic and Moist Mucous Membranes
Respiratory: Clear to Auscultation; Negative Wheezes, Rales or Rhonchi
Cardiac: Regular Rhythm and S1/S2
GI: Soft, Nontender and Nondistended
Musculoskeletal: No Edema
Neuro: Awake, Alert and Oriented
Psych: Calm
A/P:
Sepsis, secondary Urinary Tract Infection:
Changed cefepime to ceftriaxone
Urine culture with E. coli, blood culture growing gram-negative rods, appears neg for ecoli. await speciation. Repeat culture 11/18 NGTD
-Checked Abd/Pelvis CT and no evidence of obstructive uropathy
-Lactate 0.8 upon admission
-Continue to monitor temperature curve and trend WBC
Suspect acute toxic metabolic encephalopathy secondary to sepsis on admission
Now resolved
Hypokalemia
improving; monitor
Diabetes Mellitus, Type II:
-restart Prandin, restarted glimepiride
-Hemoglobin A1c 9.2
-Insulin sliding scale
-Continue to monitor sugars and adjust medications accordingly
Hyperlipidemia
-Continue atorvastatin
Post-Surgical Hypothyroidism
-Continue levothyroxine
DVT proph: Lovenox
Code Status: Full Code
Anticipated Discharge: Today
Subjective/Interval History
-
Date of Service: November 21, 2023
Denies pain
Objective Data
-
Labs:
Laboratory Results
11/21/23
09:41
WBC 8.0
Hgb 11.5 L
Hct 33.2 L
Plt Count 169
Sodium Pending
Potassium Pending
Chloride Pending
Carbon Dioxide Pending
BUN Pending
Creatinine Pending
Glucose Pending
Calcium Pending
Vital Signs:
Vital Signs
Temp Pulse Resp BP Pulse Ox
98.3 F 54 18 136/57 94
11/21/23 08:09 11/21/23 08:09 11/21/23 08:09 11/21/23 08:09 11/21/23 08:09
I&O
11/20/23 11/21/23 11/22/23
06:59 06:59 06:59
Intake Total 720 / 720 480 / 480
Balance 720 / 720 480 / 480
[2023-11-21 11:35] LABS: Glucose - Point of Care 238 mg/dl (70-99)
[2023-11-21] MEDS: NOVOLOG FLEXPEN-LOW RESISTANCE 2 UNITS SC (12:07)
[2023-11-21 12:11] LABS: Blood Urea Nitrogen 8 mg/dl (7-17); Calcium 8.1 mg/dl (8.4-10.2); Carbon Dioxide 26 mmol/L (22-30); Chloride 104 mmol/L (98-107); Estimated Creatinine Clearance 73 ml/min; Glucose 208 mg/dl (70-99); Potassium 3.4 mmol/L (3.5-5.1); Sodium 138 mmol/L (135-145); eGFR > 60.00
--- NOTE | 2023-11-21 12:50 | CM ---
Addendum entered by Randee Samuel 11/21/23 12:54:
IMM completed.
Original Note:
Patient seen bedside.
PT/OT recommending home health.
Patient agreeable to [facility], referral to liaison.
Plan: home with [facility]
--- NOTE | 2023-11-21 14:49 | VNURNOTE ---
Home Health Liaison met with patient at bedside to discuss [facility] nurse/therapy, visits, schedule and homebound status. Patient is agreeable and understands that visits at home will be 1-3 x per week to assess and teach medical management. [facility]
brochure provided with contact information. Patient is aware that [facility] will contact them for start of care within a few days after discharge from .
[facility] referral accepted in [facility].
--- NOTE | 2023-11-21 15:28 | PN.CDI ---
CDI
- -
CDI:
Physician Documentation Request
Admit Date: 11/17/23 20:32
Dear Doctor Roldan,
Patient is admitted with sepsis secondary to UTI.
Progress note 11/20 states 'Suspect acute toxic metabolic encephalopathy secondary to sepsis on admission'
11/16 Lactic acid was 2.3.
Please clarify which of the following most accurately describes the status of the patient's infection:
Sepsis only
Severe Sepsis
- Sepsis with associated acute organ dysfunction, such as renal or respiratory failure
Other
Use of terms such as suspected, likely, concern for, or probable (associated with a specific diagnosis that is being evaluated, monitored, or treated as if it exists) are acceptable and can be coded in the inpatient setting, when documented at the
time of discharge.
Thank you,
Trisha Hector RN, BSN
CDI Specialist
tiger text
Please use your independent medical judgment in providing your response.
[2023-11-21 17:15] LABS: Glucose - Point of Care 122 mg/dl (70-99)
[2023-11-21] MEDS: LOVENOX 40 MG SC (17:17)
[2023-11-21] MEDS: PRANDIN 0.5 MG PO (17:17)
[2023-11-21] MEDS: ROCEPHIN 1000 MG IV (19:58)
[2023-11-21] MEDS: STERILE WATER FOR INJECTION 10 ML IV (20:00)
[2023-11-21 21:39] LABS: Glucose - Point of Care 191 mg/dl (70-99)
[2023-11-21] MEDS: TYLENOL 650 MG PO (23:36)
[2023-11-22 03:42] VITALS: BP 129/55
--- NOTE | 2023-11-22 04:21 | PTCARENOTE ---
Patient sinus cassandra 37-39, non-sustaining & asymptomatic. RN checked on patient, denied chest pain or dizziness. Reviewed labs, K 3.4. Replaced last on 11/19/23 with PO. Notified MUSCULOSKELETAL PHYSICIAN Jessika Alvarez via text. Waiting to see what AM potassium level is.
Will continue to monitor.
[2023-11-22 06:00] VITALS: BMI 28.5
[2023-11-22] MEDS: SYNTHROID 150 MCG PO (06:21)
[2023-11-22 07:00] VITALS: BP 154/67
[2023-11-22 07:16] LABS: Blood Urea Nitrogen 7 mg/dl (7-17); Calcium 8.3 mg/dl (8.4-10.2); Carbon Dioxide 29 mmol/L (22-30); Chloride 105 mmol/L (98-107); Estimated Creatinine Clearance 72 ml/min; Glucose 146 mg/dl (70-99); Potassium 3.1 mmol/L (3.5-5.1); Sodium 140 mmol/L (135-145); eGFR > 60.00
[2023-11-22 07:26] LABS: Glucose - Point of Care 139 mg/dl (70-99)
[2023-11-22 07:38] LABS: Platelet Count 214 10^3/uL (130-400)
[2023-11-22] MEDS: LIPITOR 10 MG PO (08:33)
[2023-11-22] MEDS: NOVOLOG FLEXPEN-LOW RESISTANCE SC (08:33)
[2023-11-22] MEDS: AMARYL 4 MG PO (08:34)
[2023-11-22] MEDS: PRANDIN 0.5 MG PO ×3 (08:34→16:08)
[2023-11-22 09:04] LABS: % Basophils 0.6 % (0-2); % Immature Granulocytes 0.4 % (0-0.5); % Lymphocytes 34.8 % (20.5-51.1); % Monocytes 10.3 % (1.7-9.3); % Neutrophils 47.9 % (42.2-75.2); Absolute Basophils 0.1 10^3/uL (0-0.2); Absolute Eosinophils 0.5 10^3/uL (0-0.7); Absolute Lymphocytes 2.9 10^3/uL (1.2-3.4); Absolute Monocytes 0.8 10^3/uL (0.1-0.6); Absolute Neutrophils 3.9 10^3/uL (1.4-6.5); Hematocrit 32.1 % (37.0-47.0); Hemoglobin 10.8 g/dL (12.0-16.0); Mean Corp Hgb Conc. 33.6 g/dL (33.0-37.0); Mean Corpuscular Hgb 29.4 pg (27.0-31.0); Mean Corpuscular Volume 87.5 fL (81.0-99.0); Mean Platelet Volume 9.7 fL (7.4-10.4); Nucleated Red Blood Cells % 0 %; Red Blood Cell Count 3.67 10^6/uL (4.20-5.40); Red Cell Dist. Width 13.3 % (11.5-14.5); White Blood Cell Count 8.2 10^3/uL (4.8-10.8)
[2023-11-22 11:00] VITALS: BP 132/63
--- NOTE | 2023-11-22 11:15 | W.PN.HOSP.TC ---
Addendum entered and electronically signed by Jose Montes DO 11/22/23 15:01:
I spoke with Dr. Rollins from ID service. She is okay with discharge on Augmentin.
Original Note:
Today's Communication/Plan
-
Consult ID
Lotrimin topically under breasts
Replete potassium
Assessment / Plan
Assessment / Plan
Gen-AAOx3, NAD
HEENT-NC, AT, anicteric, clear oral mm
Neck-supple
CV-reg, no M, +S1/S2
Lungs-clear B/L
Abd-soft, NT, ND
Ext-no edema
Musculoskeletal-no cyanosis, clubbing
Skin-warm and dry, breast exam performed with supervision by nursing aid July, showing diffuse rash under both breasts
Neuro-grossly non-focal
Psych-calm, cooperative
Severe sepsis - secondary Urinary Tract Infection. Currently on IV Rocephin. White blood cell count improved.
Urine culture with E. coli, blood culture growing Tissierella. Consult ID.
-Checked Abd/Pelvis CT and no evidence of obstructive uropathy
-Lactate 0.8 upon admission
Intertrigo under breasts - lotrimin ordered. Recommend getting refitted for a proper bra.
Suspect acute toxic metabolic encephalopathy secondary to sepsis on admission
Now resolved
Hypokalemia -check magnesium. Replete orally.
DM2 with hyperglycemia -glucose 139 this morning. Glimepiride and repaglinide resumed.
-Hemoglobin A1c 9.2
-Insulin sliding scale
-Continue to monitor sugars and adjust medications accordingly
Hyperlipidemia
-Continue atorvastatin
Post-Surgical Hypothyroidism
-Continue levothyroxine
DVT proph: Lovenox
Code Status: Full Code
Updated family at the bedside.
Anticipated Discharge: Within 24 hours
Subjective/Interval History
-
Date of Service: November 22, 2023
Patient seen and examined. Complaining of rash under both breasts.
Objective Data
-
Labs:
Laboratory Results
11/22/23
06:13
WBC 8.2
Hgb 10.8 L
Hct 32.1 L
Plt Count 214 D
Sodium 140
Potassium 3.1 L
Chloride 105
Carbon Dioxide 29
BUN 7
Creatinine 0.6
Glucose 146 H
Calcium 8.3 L
Vital Signs:
Vital Signs
Temp Pulse Resp BP Pulse Ox
97.7 F 56 18 154/67 96
11/22/23 07:00 11/22/23 07:00 11/22/23 07:00 11/22/23 07:00 11/22/23 07:00
I&O
11/21/23 11/22/23 11/23/23
06:59 06:59 06:59
Intake Total 480 / 480 1080 / 1080
Balance 480 / 480 1080 / 1080
Review of Systems
-
History Source: Patient
All other systems: Reviewed and negative
[2023-11-22] MEDS: KCL 40 MEQ PO (11:32)
[2023-11-22] MEDS: LOTRIMIN 1% CREAM 1 APPLIC TOPICAL (11:32)
[2023-11-22 11:40] LABS: Magnesium 1.9 mg/dl (1.6-2.3)
[2023-11-22 12:08] LABS: Glucose - Point of Care 268 mg/dl (70-99)
[2023-11-22] MEDS: NOVOLOG FLEXPEN-LOW RESISTANCE 3 UNITS SC (12:15)
--- NOTE | 2023-11-22 14:26 | CON.ID ---
Consultation
-
Date/Time Consultation Requested: November 22, 2023 1102
Date/Time Consultation Performed: November 22, 2023 1430
Requesting Provider: Dr. Jose Montes
Performing Provider: Dr. Myra Rollins
Reason for Consultation: UTI, sepsis
Chief Complaint / Past History
Chief Complaint
Fever, burning with urination
History of Present Illness
78-year-old female with diabetes mellitus, hypothyroidism who presented to the hospital on November 16 for fever, malaise, nausea. Patient reports that she was having approximately 1 week history of dysuria, urgency, urinary frequency, and bladder
pressure. She then developed chills with fever, weakness, nausea and vomiting. In the ER her temperature was 103, white count 13. Urine analysis positive nitrite, positive pyuria, urine culture E. coli. Admission blood culture 1 out of 1 set up
anaerobic bottle resulted as Tiserella. She is currently on ceftriaxone. Fever resolved. She feels improved and wants to go home. She reports no history of frequent UTIs. No diarrhea. No flank pain. She is motivated to quit smoking.
Past History
Additional Past Medical History:
Diabetes Mellitus, Type II
Hyperlipidemia
Hypothyroidism
Right Shoulder Hemiarthroplasty
Tonsillectomy
Thyroidectomy
Cholecystectomy
Vein Stripping
Back Surgery x 3
Allergy History:
adhesive tape Allergy (Verified 04/01/22 17:01)
Rash
latex Allergy (Verified 04/01/22 17:01)
Rash
Medications Reviewed: Yes
Current Antibiotics:
ceftriaxone d5 abx
Social History
Tobacco: Smoker
Alcohol: None
Drug: None
Family History
Family History: Not Pertinent
Review of Systems
Review of Systems
Cardiovascular: Negative Chest Pain or Dyspnea
Respiratory: Negative Dyspnea or Cough
Skin / Hair / Nails: Negative Rash
Neurological: Negative Headache or Dizziness
All systems: All other systems were reviewed and were negative
Vital Signs
Temp Pulse Resp BP Pulse Ox
97.5 F 52 18 132/63 96
11/22/23 11:00 11/22/23 11:00 11/22/23 11:00 11/22/23 11:00 11/22/23 11:00
Physical Exam
Physical Exam
Constitutional: No Acute Distress and Comfortable
Eyes: No Conjunctival Hemorrhage and Sclera Anicteric
Cardiovascular: Regular Rate and S1/S2
Pulmonary: Clear
Gastrointestinal: Soft, Non Tender and Non Distended
Genito-Urinary: Negative CVA Tenderness
Extremities: Negative Edema
Musculoskeletal: Negative Joint Swelling (right shoulder)
Neurological: AO x 3
Lab / Diagnostic Study Results
11/22/23 06:13
11/22/23 06:13
Abs Immat Gran (auto) 0.0 10^3/uL (0-0.05) 11/22/23 06:13
Absolute Neuts (auto) 3.9 10^3/uL (1.4-6.5) 11/22/23 06:13
Absolute Lymphs (auto) 2.9 10^3/uL (1.2-3.4) 11/22/23 06:13
Absolute Monos (auto) 0.8 10^3/uL (0.1-0.6) H 11/22/23 06:13
Absolute Basos (auto) 0.1 10^3/uL (0-0.2) 11/22/23 06:13
Immature Gran % 0.4 % (0-0.5) 11/22/23 06:13
Neutrophils % 47.9 % (42.2-75.2) 11/22/23 06:13
Lymphocytes % 34.8 % (20.5-51.1) 11/22/23 06:13
Monocytes % 10.3 % (1.7-9.3) H 11/22/23 06:13
Eosinophils % 6.0 % (0-6) 11/22/23 06:13
Basophils % 0.6 % (0-2) 11/22/23 06:13
Lactic Acid 0.8 mmol/L (0.7-2.0) 11/17/23 17:23
Microbiology Results
Micro:
11/19/23 20:34 Blood Culture - Preliminary
Blood/Venous No Growth in 48 hours- Final report to follow
11/17/23 16:44 Blood Culture - Preliminary
Blood/Venous Tissierella praeacuta
Gram Stain - Preliminary
11/17/23 14:45 Urine Culture - Final
Urine Escherichia coli
11/17/23 CT a/P: No findings to suggest obstructive uropathy bilaterally.
11/17/23 CXR: negative
Assessment / Plan
# Symptomatic E. coli UTI
# Fever, leukocytosis resolved
- Can transition ceftriaxone to Augmentin 875 mg po bid through 11/28/23.
# Tisierella (Clostridium sp) bacteremia 04/14 set bcx
- Contaminant
-Repeat bcx neg.
Can DC home.
Care Review
Plan reviewed with: Physician (Dr. Montes)
[2023-11-22 15:00] VITALS: BP 128/64
--- NOTE | 2023-11-22 15:13 | W.DS.TRANS ---
DC Summary - Admissions Director
-
Discharge Instructions:
Discharge Diagnosis/Procedures Sepsis, urinary tract infection, intertrigo
Diet Diabetic, Carb Controlled
Activity As tolerated
Driving Restrictions As prior to admission
Bathing Restrictions None
Instructions:
Stand-Alone Forms:
Changes to Home Medications: No
Discharge Medications:
DC Medications w/original date entered in [employer] [facility]
atorvastatin 10 mg tablet 10 mg PO DAILY High Cholesterol 11/19/12
levothyroxine 150 mcg tablet 150 mcg PO DAILY Thyroid 07/06/18
glimepiride 4 mg tablet 4 mg PO DAILY Diabetes 11/17/23
repaglinide 0.5 mg tablet 0.5 mg PO TID Neurological Condition 11/17/23
amoxicillin 875 mg-potassium clavulanate 125 mg tablet 1 tab PO BID #14 tabs 11/22/23
clotrimazole 1 % topical cream (Athlete's Foot (clotrimazole)) 1 applic topical BID #15 grams 11/22/23
potassium chloride 20 mEq tablet,extended release(part/cryst) 20 meq PO BID #10 tabs 11/22/23
Home Medication Changes
Pending Results: No
--- NOTE | 2023-11-22 15:36 | CM ---
Met with patient at bedside to discuss discharge plan
Reported daughter and son-in-law will provide transport home
Plan: discharge to home today with home health services from [facility]
== END 2023-11-22 16:35 | disposition home health service (06) | DRG 871 ==
LOC: 4 WEST ACU 20:32
PROVIDERS: Hospitalist; Internal Medicine; Physician Assistant; Physician Assistant Medical; ADMITTING PHYSICIAN Hospitalist; ATTENDING PHYSICIAN Hospitalist; CONSULT PHYSICIAN Internal Medicine Infectious Disease; EMERGENCY PHYSICIAN Emergency Medicine; FAMILY PHYSICIAN Internal Medicine
DX: A41.9 Sepsis, unspecified organism (principal); G92.8 Other toxic encephalopathy; N39.0 Urinary tract infection, site not specified; F17.210 Nicotine dependence, cigarettes, uncomplicated; R65.20 Severe sepsis without septic shock; Z11.52 Encounter for screening for COVID-19; L30.4 Erythema intertrigo; E87.6 Hypokalemia; E11.65 Type 2 diabetes mellitus with hyperglycemia
CPT/HCPCS: 71046; 74176; 80048; 80053; 81003; 81015; 82962; 83036; 83605; 83690; 83735; 84443; 85025; 85027; 87040; 87077; 87086; 87149; 87186; 87205; 87811; 96361; 96374; 97116; 97162; 97166; 99285; 99406; J1335

== ENCOUNTER 2024-06-27 10:58 | Emergency (ER) | payer MEDICARE, OTHER, SELFPAY ==
[2024-06-27 11:01] VITALS: BP 139/64
[2024-06-27 11:13] VITALS: BMI 26.0
[2024-06-27 11:15] VITALS: BP 120/50
--- NOTE | 2024-06-27 12:05 | ED.GENMED ---
History of Present Illness
General
Chief Complaint: Head Injury
Source: patient
Time Seen by Provider: 06/27/24 11:18
History of Present Illness
History of Present Illness:
79-year-old female with past medical history of hyperlipidemia and pjy-[id number] diabetes presenting to the emergency department for evaluation after she excellently fell striking her forehead onto the ground approximately 30 minutes prior
to arrival to the emergency department. Patient notes a secondary concern of small abrasion over the right fifth MCP joint. Patient denies any loss consciousness, vomiting, visual changes. She states she does have a very mild headache but
otherwise feels she is at her baseline.
Past History
Past History
ED Past Medical History: Hypercholesterolemia, NIDDM, Hypothyroidism and Other (Vertigo)
ED Past Surgical History: Cholecystectomy, Gynecological, Orthopedic and Urological
Social History
Tobacco: Smoker
Alcohol: None
Drug: None
Personal:
Living: with family
Review of Systems
Review of Systems
All Other Systems: ROS reviewed and negative except as documented in HPI and ROS
Phy Exam
Physical Exam
Physical Exam:
GENERAL: Alert , in no apparent distress
EYE: conjunctiva clear
Head: N frontal forehead contusion, no breaks in skin
NECK: Supple,
ENT: mmm.
LUNGS: no acute respiratory distress
NEUROLOGICAL: Alert and oriented
SKIN: Warm and dry, small less than 4 mm abrasion over the right fifth MCP without any active bleeding
MUSCULOSKELETAL: well perfused.
PSYCH: Normal and appropriate interaction.
Scores
Heart Failure Risk
Heart Failure Risk Score: Not Applicable
Heart Score for Chest Pain Patients
STEMI patient?: Not applicable
Withdrawal Assessment of Alcohol
Withdrawal Assessment Completed?: Not applicable
Course
Orders/Labs/Results
Orders:
Orders
06/27/24 11:[address] Cervical Spine W/o Iv Contr Urgent
Comment:
Reason For Exam: fall, head injury
CT Head W/o Iv Contrast Urgent
Comment:
Reason For Exam: fall, head injury
Vital Signs
Initial and Last Documented VS:
Initial Vital Signs
Temp Pulse Resp BP Pulse Ox
98.7 F 79 17 139/64 99
06/27/24 11:01 06/27/24 11:01 06/27/24 11:01 06/27/24 11:01 06/27/24 11:01
Last Documented Vital Signs
Temp Pulse Resp BP Pulse Ox
98.7 F 79 17 120/50 95
06/27/24 11:01 06/27/24 11:01 06/27/24 11:01 06/27/24 11:15 06/27/24 11:30
MDM/Problems Addressed
Differential Diagnosis Includes:
Forehead contusion, concussion, intracranial bleeding, calvarial fracture
MDM/Problems Addressed:
79-year-old female presenting to the emergency department for evaluation after accidental slip and fall resulting in head injury. Contusion noted. Will obtain CT scan of the head and cervical spine. Disposition pending.
*Radiology
Radiology exam reviewed: radiology read reviewed
*Pulse Oximetry
Patient hypoxic: no
*Critical Care Note
Total Time (30-74mins, 75-104mins- exclusive of procedures): Not Applicable
Patient Management
Escalation/DeEscalation of care consider admission/obs:
CT scan without any acute intracranial pathologies. Cervical spine without fracture. Patient is stable for discharge home. NSAIDs/Tylenol as needed. Patient aware of return precautions. Stable for discharge home.
ED Attending Note
-
Portions of this chart may have been created with voice recognition software.� Occasional wrong word or��sound alike� substitutions may have occurred due to the inherent limitations of voice recognition software.
Discharge Plan
Departure
Patient Disposition: Home (Routine Discharge)
Date of Disposition: 06/27/24
Time of Disposition: 12:06
Patient with high blood pressure during this ER visit?: No
Discharge Problem:
Accidental fall, Forehead contusion
Instructions: Head Injury in Adults (DC)
Prescriptions:
No Action
atorvastatin 10 MG tablet
10 mg PO DAILY
levothyroxine 150 MCG tablet
150 mcg PO DAILY
repaglinide 0.5 mg Tablet
0.5 mg PO TID
glimepiride 4 mg Tablet
4 mg PO DAILY
potassium chloride 20 mEq Tablet,Er Particles/Crystals
20 meq PO BID Qty: 10 0RF
clotrimazole [Athlete's Foot (clotrimazole)] 1 % Cream
1 applic topical BID Qty: 15 0RF
Rx Instructions:
apply under breasts twice daily
amoxicillin-pot clavulanate 875-125 mg tablet
1 tab PO BID Qty: 14 0RF
Referrals:
Maico Chaparro MD [Family Provider] -
Interventions
Interventions:
*Risk Screen - Suicide Last Done: 06/27/24 11:01
*General Assessment Last Done: 06/27/24 11:01
*Neglect/Abuse Screening Last Done: 06/27/24 11:01
*ED- Fall Risk Assessment Last Done: 06/27/24 11:13
*ED COVID-19 Vaccine History Last Done: 06/27/24 11:01
*Nursing Disposition Last Done: 06/27/24 12:22
ED- Neurological Assessment Last Done: 06/27/24 11:16
ED-Skin Assessment Last Done: 06/27/24 11:16
Discharge Date and Time
Discharge Date/Time: 06/27/24 12:23
Print Language: MONTENEGRIN
== END 2024-06-27 12:23 | disposition home or self-care (01) ==
LOC: EMR 10:58
PROVIDERS: EMERGENCY PHYSICIAN Emergency Medicine; FAMILY PHYSICIAN Internal Medicine
DX: S00.83XA Contusion of other part of head, initial encounter (principal); W01.0XXA Fall on same level from slipping, tripping and stumbling without subsequent striking against object, initial encounter; E03.9 Hypothyroidism, unspecified; E11.9 Type 2 diabetes mellitus without complications; E78.00 Pure hypercholesterolemia, unspecified; F17.200 Nicotine dependence, unspecified, uncomplicated
CPT/HCPCS: 99284; 70450; 72125

== ENCOUNTER → 2024-12-03 11:32 | Outpatient (REF) | payer MEDICARE, SELFPAY | LOC: WDC 11:32 | PROVIDERS: ATTENDING PHYSICIAN Internal Medicine | DX: Z12.31 Encounter for screening mammogram for malignant neoplasm of breast (principal) | CPT/HCPCS: 77063; 77067 ==